=== PATIENT | female | born 1970 | race American Indian/Alaskan Native ===

== ENCOUNTER 2017-08-15 08:09 | Outpatient (CLI) | payer BC ==
--- NOTE | 2017-08-15 14:01 | Mammography Report ---
BILATERAL DIGITAL SCREENING MAMMOGRAM with CAD: 08/15/17 08:09:00 CLINICAL: Routine screening. COMPARISON:02/26/16 FINDINGS: The breasts are almost entirely fatty. No mass, architectural distortion or suspicious calcifications. IMPRESSION: No mammographic evidence of malignancy. BI-RADS CATEGORY: 2 -- Benign RECOMMENDATION: Routine mammographic screening in one year. COMMENT: Patient follow-up letters are generated by our [employer] application.
== END 2017-08-15 08:10 | disposition home or self-care (01) ==
LOC: SPVWC 08:09
PROVIDERS: ATTEND Obstetrics & Gynecology
DX: Z12.31 Encounter for screening mammogram for malignant neoplasm of breast (principal)
CPT/HCPCS: 77067; G0202

== ENCOUNTER 2018-05-05 14:13 | Outpatient (CLI) | payer BC ==
--- NOTE | 2018-05-05 16:08 | XRay Report ---
Bilateral hips with pelvis, SI joints: Radiculopathy and pain. AP and frog-lateral views of both hips are unremarkable. The bones are well-mineralized. The articular surfaces are smooth and the joint spaces are preserved. The hips are in good positions. An AP view of the pelvis AP and both obliques of the SI joints demonstrate normal alignment of the joints. There is sclerosis along the articular margin of the right SI joint predominantly inferiorly involving the ileum and to a lesser extent the lower sacrum. The inferior articular margins are slightly irregular. The left SI joint is unremarkable. No abnormal soft tissues identified Impression:. 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
== END 2018-05-05 14:14 | disposition home or self-care (01) ==
LOC: XRAY 14:13
PROVIDERS: ATTEND Anesthesiology
DX: M48.061 Spinal stenosis, lumbar region without neurogenic claudication (principal); E66.9 Obesity, unspecified; G89.4 Chronic pain syndrome; M46.1 Sacroiliitis, not elsewhere classified
CPT/HCPCS: 72202; 73521

== ENCOUNTER 2019-05-21 08:33 | Outpatient (CLI) | payer BC ==
--- NOTE | 2019-05-21 09:45 | Mammography Report ---
DIGITAL SCREENING MAMMOGRAM WITH CAD INDICATION: Routine screening mammography. TECHNIQUE: Digital bilateral 2D mammography was obtained in the craniocaudal and mediolateral obliq ue projections. This examination was interpreted with the benefit of Computer-Aided Detection analysi s. COMPARISON: 05/05/2018 FINDINGS: Breast Density: There are scattered areas of fibroglandular density. There is no evidence of dominant mass, suspicious calcifications or architectural distortion in eith er breast. IMPRESSION: BI-RADS Category 1: Negative. No mammographic evidence of malignancy. Recommend routine screening m ammography in one year. A "normal" or negative report should not discourage follow up or biopsy of a clinically significant f inding. A written summary of these findings will be mailed to the patient. The patient will be entered into a mammography reporting system which will generate a reminder letter for the patient's next appointmen t at the appropriate interval. The [employer] recommends yearly mammograms starting at age 40 and continuing as l joon as a woman is in good health. Breast MRI is recommended for women with an approximate 20-25% or greater lifetime risk of breast cancer, including women with a strong family history of breast or ova idris cancer or who have been treated for Hodgkin's disease. Signer Name: Anthony Cotton MD Signed: 05/21/2019 9:40 AM Workstation Name: [id number]
== END 2019-05-21 08:34 | disposition home or self-care (01) ==
LOC: SPVWC 08:33
PROVIDERS: ATTEND Obstetrics & Gynecology
DX: Z12.31 Encounter for screening mammogram for malignant neoplasm of breast (principal)
CPT/HCPCS: 77067

== ENCOUNTER 2020-11-10 07:55 | Outpatient (CLI) | payer BC ==
--- NOTE | 2020-11-10 08:57 | Ultrasound Report ---
ULTRASOUND ABDOMEN, COMPLETE INDICATION / CLINICAL INFORMATION: ABDOMINAL PAIN. COMPARISON: None available. FINDINGS: PANCREAS: Visualized portions demonstrate no significant abnormality. ABDOMINAL AORTA: Visualized portions demonstrate no significant abnormality. IVC: No significant abnormality. LIVER: Mildly enlarged liver at 18.1 cm. No focal lesion. Heterogeneous echotexture could represent f atty infiltration. GALLBLADDER: Multiple small echogenic gallstones and layering biliary sludge. No significant gallblad ric wall thickening, pericholecystic fluid, and no sonographic Cardenas sign is present. BILE DUCTS: No significant abnormality. Common bile duct measures 3 mm. KIDNEYS: Right: Few echogenic foci measuring up to 8 mm. Left: Echogenic focus measuring 6 mm. SPLEEN: No significant abnormality. FREE FLUID: None. ADDITIONAL FINDINGS: None. IMPRESSION: 1. Mild hepatomegaly with findings suggestive of hepatic steatosis. 2. Cholelithiasis and biliary sludge without evidence of acute cholecystitis. 3. Nonobstructing nephrolithiasis. Signer Name: Regan Maher MD Signed: 11/10/2020 8:52 AM Workstation Name: [id number]
== END 2020-11-10 07:56 | disposition home or self-care (01) ==
LOC: US 07:55
PROVIDERS: ATTEND Internal Medicine
DX: R16.0 Hepatomegaly, not elsewhere classified (principal); N20.0 Calculus of kidney; K80.20 Calculus of gallbladder without cholecystitis without obstruction
CPT/HCPCS: 76700